=== PATIENT | male | born 1975 | race African-American/Black ===

== ENCOUNTER 2019-07-13 18:33 | Emergency (ER) | payer OTHER ==
[~2019-07-13] VITALS: Ht 177.8 cm; Wt 90.7 kg
[~2019-07-13 18:33] MED LIST: XANAX 0.5 MG0.5 MG PO
[2019-07-13 18:38] VITALS: BP 130/87
[2019-07-13] MEDS ORDERED: LIPITOR 20 MG T20 M1 PO (18:42)
[2019-07-13] MEDS ORDERED: NAPROSYN500 MG PO (19:18)
[2019-07-13] MEDS ORDERED: NORFLEX100 MG PO (19:18)
== END 2019-07-13 19:40 | disposition home or self-care (01) ==
LOC: ER 18:33
DX: M43.6 Torticollis (principal); E78.5 Hyperlipidemia, unspecified

== ENCOUNTER 2021-05-17 19:00 | Emergency (ER) | payer OTHER ==
[~2021-05-17] VITALS: Ht 177.8 cm; Wt 81.7 kg
[~2021-05-17 19:00] MED LIST changes: +LIPITOR 20 MG T20 M1 PO; +NAPROSYN500 MG PO; +NORFLEX100 MG PO
[2021-05-17 19:08] VITALS: BP 151/86
[2021-05-17] MEDS ORDERED: MOBIC7.5 MG PO (20:05)
== END 2021-05-17 21:23 | disposition home or self-care (01) ==
LOC: ER 19:00
DX: S61.210A Laceration without foreign body of right index finger without damage to nail, initial encounter (principal); S61.411A Laceration without foreign body of right hand, initial encounter; E78.5 Hyperlipidemia, unspecified; Z86.16 Personal history of COVID-19; Z79.899 Other long term (current) drug therapy; W22.8XXA Striking against or struck by other objects, initial encounter; Y93.89 Activity, other specified; Y92.89 Other specified places as the place of occurrence of the external cause; Y99.8 Other external cause status

== ENCOUNTER 2021-08-10 05:38 | Emergency (ER) | payer OTHER ==
[~2021-08-10] VITALS: Ht 177.8 cm; Wt 90.7 kg
[~2021-08-10 05:38] MED LIST changes: +MOBIC7.5 MG PO
[2021-08-10] MEDS ORDERED: NOHOMEMEDICATIONS (05:52)
[2021-08-10 06:21] LABS: ABSOLUTE NEUTROPHILS 1.9 thou/uL (1.4-8.2); BASOPHILS 0.8 % (0.0-2.0); EOSINOPHILS 4.1 % (0.0-3.0); HEMATOCRIT 40.8 % (42.0-52.0); HEMOGLOBIN 13.5 gm/dL (14.0-18.0); LYMPHOCYTES 49.7 % (24.0-44.0); MCH 28.3 pg (26.0-34.0); MCV 85.7 fL (80.0-100.0); MONOCYTES 12.2 % (1.0-8.0); PLATELET COUNT 198 thou/uL (150-400); POLYS 33.2 % (36.0-66.0); RBC 4.76 mil/uL (4.50-6.00); RDW 13.4 % (10.5-14.5); WBC 5.7 thou/uL (4.0-11.0)
[2021-08-10 06:24] LABS: CALCIUM 8.6 mg/dL (8.5-10.1); CREATININE 1.1 mg/dL (0.7-1.3); POTASSIUM 4.1 mmol/L (3.5-5.1)
[2021-08-10] MEDS ORDERED: ATIVAN1 M1 PO (06:40)
[2021-08-10 06:48] VITALS: BP 138/94
--- NOTE | 2021-08-10 11:57 | EKG ---
[place] [address] [facility] [facility] 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 : 1975 Requested By: Can Stacy Order Number: [id number] MD: Tomás Real Measurements Intervals [place] Rate: 66 P: 50 MT: 174 QRS: 12 QRSD: 81 T: -5 QT: 372 QTc: 390 Interpretive Statements Sinus rhythm Probable left atrial enlargement Probable left ventricular hypertrophy Compared to ECG 05/17/2016 00:13:39 No significant changes Electronically Signed On 08-10-2021 11:57:25 JEWELRY DRILLING MACHINE OPERATOR by Tomás Real [email or web address] <ELECTRONICALLY SIGNED> By: Tomás Real MD, [facility] 08/10/21 1157 0545 4 Tomás Real MD, FACC /EPI
== END 2021-08-10 06:51 | disposition home or self-care (01) ==
LOC: ER 05:38
PROVIDERS: Emergency Medicine
DX: R00.2 Palpitations (principal); E78.5 Hyperlipidemia, unspecified; Z86.16 Personal history of COVID-19

== ENCOUNTER 2021-08-20 12:32 | Emergency (ER) | payer OTHER ==
[~2021-08-20] VITALS: Ht 177.8 cm; Wt 90.7 kg
[~2021-08-20 12:32] MED LIST changes: +ATIVAN1 M1 PO; +NOHOMEMEDICATIONS
[2021-08-20 13:05] LABS: ABSOLUTE NEUTROPHILS 3.3 thou/uL (1.4-8.2); BASOPHILS 1.7 % (0.0-2.0); EOSINOPHILS 3.8 % (0.0-3.0); HEMATOCRIT 44.1 % (42.0-52.0); HEMOGLOBIN 14.5 gm/dL (14.0-18.0); LYMPHOCYTES 30.4 % (24.0-44.0); MCH 28.4 pg (26.0-34.0); MCHC 32.8 g/dL (28.0-37.0); MCV 86.5 fL (80.0-100.0); MONOCYTES 14.5 % (1.0-8.0); PLATELET COUNT 181 thou/uL (150-400); POLYS 49.6 % (36.0-66.0); RBC 5.09 mil/uL (4.50-6.00); RDW 14.7 % (10.5-14.5); WBC 6.6 thou/uL (4.0-11.0)
[2021-08-20 13:36] LABS: CALCIUM 9.1 mg/dL (8.5-10.1); CREATININE 1.2 mg/dL (0.7-1.3); POTASSIUM 4.5 mmol/L (3.5-5.1)
[2021-08-20 13:41] LABS: ALBUMIN 4.2 g/dL (3.4-5.0); TOTAL BILIRUBIN 0.4 mg/dL (0.2-1.0); TOTAL PROTEIN 7.7 g/dL (6.4-8.2)
[2021-08-20 15:24] LABS: URINE BILIRUBIN NEGATIVE (Negative); URINE BLOOD TRACE (Negative); URINE CLARITY CLEAR; URINE COLOR YELLOW; URINE GLUCOSE-RANDOM* NEGATIVE (Negative); URINE KETONES NEGATIVE (Negative); URINE LEUKOCYTES-REFLEX NEGATIVE (Negative); URINE NITRITE-REFLEX NEGATIVE (Negative); URINE PROTEIN (DIPSTICK) NEGATIVE (Negative); URINE UROBILINOGEN 0.2 E.U./dl (0.2-1.0)
--- NOTE | 2021-08-20 15:34 | EKG ---
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 : 1975 Requested By: Zahra Jang Order Number: [id number] MD: Tomás Real Measurements Intervals [place] Rate: 95 P: 48 LA: 173 QRS: 11 QRSD: 82 T: 5 QT: 323 QTc: 406 Interpretive Statements Sinus rhythm Probable left atrial enlargement Left ventricular hypertrophy Borderline T abnormalities, lateral leads Baseline wander in lead(s) V3 Compared to ECG 08/10/2021 05:45:32 T-wave abnormality now present Electronically Signed On 08-20-2021 15:34:29 SUPERINTENDENT DRILLING by Tomás Real [email or web address] <ELECTRONICALLY SIGNED> By: Tomás Real MD, [facility] 08/20/21 1534 1245 124 Tomás Real MD, FAC /EPI
[2021-08-20 16:44] VITALS: BP 131/86
[2021-08-20] MEDS ORDERED: TOPROL XL50 MG PO (16:57)
== END 2021-08-20 16:44 | disposition home or self-care (01) ==
LOC: ER 12:32
PROVIDERS: Emergency Medicine
DX: R00.2 Palpitations (principal); Z20.822 Contact with and (suspected) exposure to COVID-19; R07.89 Other chest pain; E78.5 Hyperlipidemia, unspecified; Z86.16 Personal history of COVID-19

== ENCOUNTER → 2021-09-06 | Outpatient (CLI) | payer OTHER ==
[~2021-09-06] MED LIST changes: +TOPROL XL50 MG PO
== END ==
LOC: SJCVCIMAG 14:00
PROVIDERS: ATTEND Internal Medicine
DX: I51.7 Cardiomegaly (principal); R06.00 Dyspnea, unspecified; R00.0 Tachycardia, unspecified